=== PATIENT | male | born 1980 | race American Indian/Alaskan Native ===

== ENCOUNTER 2020-04-27 12:44 | Outpatient (CLI) | payer OTHER ==
[2020-04-27] MEDS ORDERED: LIDOCAINE (4%) 40 MG/ML TOPICAL SOLN 50 ML BOTTLE TP ONE (12:51)
[2020-04-27] MEDS ORDERED: SODIUM CHLORIDE 0.9% IRR 500 ML BOTTLE IR ONE (13:45)
== END 2020-04-27 12:45 | disposition home or self-care (01) ==
LOC: WOUND 12:44
PROVIDERS: ATTEND Surgery
DX: S71.101A Unspecified open wound, right thigh, initial encounter (principal); E11.628 Type 2 diabetes mellitus with other skin complications; F17.210 Nicotine dependence, cigarettes, uncomplicated; X95 Assault by other and unspecified firearm and gun discharge; Y93.89 Activity, other specified; Y92.89 Other specified places as the place of occurrence of the external cause; Y99.8 Other external cause status
CPT/HCPCS: 11042; G0463; 99204

== ENCOUNTER 2020-06-01 08:36 | Outpatient (CLI) | payer OTHER | END 2020-06-01 08:37 | disposition home or self-care (01) | LOC: WOUND 08:36 | PROVIDERS: ATTEND Surgery | DX: S71.101D Unspecified open wound, right thigh, subsequent encounter (principal); E11.9 Type 2 diabetes mellitus without complications; F17.210 Nicotine dependence, cigarettes, uncomplicated; W34.00XD Accidental discharge from unspecified firearms or gun, subsequent encounter | CPT/HCPCS: 99213; G0463 ==